=== PATIENT | male | born 1955 | race Caucasian/White ===

== ENCOUNTER → 2023-04-10 | Day surgery (SDC) | payer OTHER, MEDICARE ==
[2023-04-09 10:42] LABS: Absolute Lymphocytes (CBC) 1.5 K/uL (0.7-4.9); Hematocrit 55.7 % (39.6-49.0); Lymphocytes % 18.6 % (15.3-44.8); MCV 89.1 fL (80-100); MPV 8.4 fL (7.6-11.3); Platelets 210 thou/uL (152-406); RBC Red Blood Cell Count 6.26 M/uL (4.33-5.43)
--- NOTE | 2023-04-09 11:40 | RAD REPORT ---
EXAM DESCRIPTION: RAD - Chest Pa And Lat (2 Views) - 04/09/2023 10:32 am CLINICAL HISTORY: PREOP. Hypertension COMPARISON: Chest Pa And Lat (2 Views) dated 11/29/2015; CHEST PA AND LAT 2 VIEW dated 05/04/2013 TECHNIQUE: PA and lateral views of the chest were obtained. FINDINGS: The lungs are clear. Heart size is normal and central vasculature is within normal limits. No pleural effusion or pneumothorax seen. No acute bony finding noted. IMPRESSION: No acute cardiopulmonary process.
[~2023-04-10] MED LIST: CEFAZOLIN SODIUM 2 GM/VIAL ONE; EPHEDRINE SULF 50 MG/ML VIAL ONE; FENTANYL CITR 100 MCG/2 ML ONE; GLYCOPYRROLATE 0.2 MG/ML SYR ONE; HYDROCODONE/APAP 7.5/325 MG TAB PO PRN; HYDROMORPHONE HCL 1 MG/ML INJ ONE; LIDOCAINE 2% MPF 5 ML VIAL ONE; NEOSTIGMINE 1 MG/ML -10 ML VIAL ONE; ONDANSETRON 4 MG/2 ML VIAL ONE; ROCURONIUM 50 MG/5 ML VIAL IV ONE; dexAMETHasone 4 MG/ML VIAL ONE; propofoL 200 MG/20 ML VIAL IV ONE
[2023-04-10] MEDS: NA CHLORIDE 0.9% 1,000 ML ONE ×2 (07:00→07:30)
--- NOTE | 2023-04-10 09:00 | P.OP ---
Date of Service: 04/10/23 Preop diagnosis: Bilateral inguinal hernia Postop diagnosis: Same Procedure performed: Repair of bilateral inguinal hernia Surgeon: Rafael Goldsmith MD Flattening Press Operator: JOSE Rojas Estimated blood loss: Minimal Specimen: Cord lipoma x 2 Findings: As above Anesthesia: General Complications: None Drains: None Fluids and blood products: Nonapplicable Disposition: Recovery room Operative note: Patient brought to the OR placed in supine position. General anesthesia begun. Patient prepped and draped in the usual sterile fashion. Marcaine 0.5% infiltrated in a field block fashion in the left groin first and then in the right groin. A 4 cm oblique incision made between the left pubic tubercle and the anterior iliac superior spine. Subcu tissue divided and bleeding controlled cautery. Bebeto's fascia identified and divided. Aponeurosis the external abdominal oblique identified and mobilized inferiorly to expose the shelving edge. Ilioinguinal nerve identified and retracted out of the field of dissection. External ring opened through and cord mobilized at the pubic tubercle and skeletonized. Large cord lipoma identified. This was dissected free from the cord structures and high ligation with 2-0 Prolene suture and freehand tie was done. Lipoma was excised sent to pathology as specimen. Marlex mesh plug medium in size placed in the internal ring and secured with VersaTack stapler. Onlay mesh placed on the inguinal floor secured medially to the pubic tubercle, superior to the conjoined tendon, inferiorly to the shelving edge and laterally to each other. Cord structures and ilioinguinal nerve placed back in anatomic location. 2 point used to close the aponeurosis. 3-0 chromic used to close Bebeto's fascia. Staple used to close skin. Exact same operation occurred on the right side with same findings. The repair was exactly the same. Sterile dressing applied and patient awakened. Patient taken to recovery room in good general condition. CC Dr. Castaneda's office:
[2023-04-10 09:52] VITALS: O2SAT 97
[2023-04-10 11:06] VITALS: BP 147/86; TEMP 96.7
== END | disposition home or self-care (01) ==
LOC: OR 06:22
PROVIDERS: ATTEND Surgery
PROC: 0YUA0JZ Supplement Bilateral Inguinal Region with Synthetic Substitute, Open Approach (ICD-10-PCS; principal; 2023-04-10 07:30)
DX: K40.20 Bilateral inguinal hernia, without obstruction or gangrene, not specified as recurrent (principal)
CPT/HCPCS: 85025; 36415; 82947 ×2; 88302; 71046; 49505; J2704; J1100; J2710; J2001; J3010; J1170; J2405; J7030

== ENCOUNTER 2024-07-01 13:11 | Emergency (ER) | payer OTHER, MEDICARE ==
--- OUTSIDE RECORDS SUMMARY | 2024-07-01 13:15 | XMS REPORT | Continuity of Care Document ---
Author Name Unknown Address [address] [facility] [address] [place] [address] [facility] [place] Address [address] [facility] [address] [place] [address] Care Team Providers Care Forensics Analyst Name Role Phone Andriy Castaneda Primary Care Physician [phone] Andriy Castaneda Attending Clinician Unavailable Richard Leyva MD Attending Clinician [phone] Minnie Montilla MD Attending Clinician [phone] MINNIE MONTILLA Attending Clinician Unavailable Genaro Ibarra Attending Clinician [phone] GENARO MONROE Attending Clinician Unavailable Divine Art MA Attending Clinician UnavailHENNA Heaton Attending Clinician Unavailable Henna Irvin PA-C Attending Clinician [phone] Unknown, Attending Attending Clinician Unavailab FABRIZIO Mauro Attending Clinician Unavailable Fabrizio Campa Attending Clinician [phone] Unknown, Attending Attending Clinician Unavailab CARMEN Koroma Attending Clinician Unavailable Carmen Taylor MD Attending Clinician [phone] ANNA_Shaji_Mina_ Attending Clinician Unavaila Estefany Herman Attending Clinician [phone] Nurse, Ad[facility] Pob Immunization Attending Clinician Unavailable Mir Parker DO Attending Clinician [phone] Provider, [facility] Attending Clinician Un available Grayson Black MD Attending Clinician GRAYSNO BLACK Attending Clinician Unavail able Doctor Unassigned, [place] Attending Clinician U navailable ANNA_Shaji_Mina_ Admitting Clinician Shilo lincoln Payers Payer Name Policy Type Policy Number Effective Date Expirati on Date Source MEDICARE PART A AND B Medicare [id number] 2023 00:00:00 [place] [employer] [id number] 2021 00:00:00 BC[facility] [id number] 2019 00:00:00 Problems Condition Name Condition Details Condition Category Status Onset Date Resolution Date Last Treatment Date Treating Clinician Comments Source Osteoarthr itis of right knee joint Osteoarthr itis of Right Knee Joint Problem Active 2023-04 00:00: 00 [facility] Primary hypertensi on Primary hypertensi on Disease Active 11-13 00:00: 00 [facility] Rotator cuff tear Rotator cuff tear Disease Active 11-13 00:00: 00 [facility] Mixed hyperlipid emia Mixed hyperlipid emia Disease Active 11-13 00:00: 00 [facility] Current chronic use of systemic steroids Current chronic use of systemic steroids Disease Active 11-13 00:00: 00 [facility] PMR (polymyalg ia rheumatica ) (CMS/HCC) PMR (polymyalg ia rheumatica ) (CMS/HCC) Disease Active 11-13 00:00: 00 [facility] Pain of left knee joint Pain of Left Knee Joint Problem Active - 00:00: 00 [facility] Osteoarthr itis of left knee joint Osteoarthr itis of Left Knee Joint Problem Active 6-06 00:00: 00 [facility] Pain in pelvis Pain in Pelvis Problem Active 5-10 00:00: 00 [facility] 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 itis Problem Active -17 00:00: 00 [facility] No known active problems No known active problems Disease [facility] Allergies, Adverse Reactions, Alerts Allergy Name Allergy Type Status Severity Reaction(s) Onset Date Inactive Date Treating Clinician Comments Source NO KNOWN ALLERGIE S Drug Class Active [facility] NO KNOWN ALLERGIE S SYSTEMIC Active [facility] NO KNOWN ALLERGIE S SYSTEMIC Active MHEOUT NO KNOWN ALLERGIE S SYSTEMIC Active MHEOUT Social History Social Habit Start Date Stop Date Quantity Comments Source Gender identity 2023-07-07 14:36:38 Identifies as male gender (finding) [facility] Exposure to SARS-CoV-2 (event) Not sure [facility] Sexual orientation [facility] Alcoholic beverage intake 2024-05-12 00:00:00 2024-05-12 00:00:00 Lifetime non-drinker (finding) [facility] History of Social function 2024-05-12 00:00:00 2024-05-12 00:00:00 [facility] Tobacco use and exposure 2020-11-06 00:00:00 2020-11-06 00:00:00 Smokeless tobacco non-user [facility] Sex assigned at 1955 00:00:00 1955 00:00:00 [facility] Smoking Status Start Date Stop Date Source Unknown if ever smoked [facility] Never smoked tobacco [facility] Medications Ordered Medication Name Filled Medication Name Start Date Stop Date Current Medication? Ordering Clinician Indication Dosage Frequency Signature (SIG) Comments Components Source bimatoprost (Lumigan) 0.01 % ophthalmic solution bimatoprost (Lumigan) 0.01 % ophthalmic solution 05-12 11:41: 26 Yes 1[drp] Administer 1 drop into both eyes at bedtime. [facility] azelastine (Astelin) 0.1 % nasal spray azelastine (Astelin) 0.1 % nasal spray 2023-04 00:00: 00 Yes 2{spray } Q.5D Administer 2 sprays into each nostril in the morning and 2 sprays in the evening. [facility] famotidine (Pepcid) 10 MG tablet famotidine (Pepcid) 10 MG tablet 2023-04 11:36: 37 Yes 20mg Take 20 mg by mouth. [facility] predniSONE (Deltasone) 1 MG tablet predniSONE (Deltasone) 1 MG tablet 2023-04 00:00: 00 Yes [id number] 4mg QD Take 4 tablets by mouth 1 time each day. [facility] omeprazole (PriLOSEC) [address] capsule omeprazole (PriLOSEC) [address] capsule 11-13 13:23: 40 Yes 20mg Take 20 mg by mouth 1 time each day at the same time. [facility] montelukast (Singulair) 10 MG tablet montelukast (Singulair) 10 MG tablet 11-13 13:23: 39 Yes 1{tbl} Take 1 tablet by mouth 1 time each day at the same time. [facility] Multiple Vitamins-Mi nerals (Multivitam in) liquid Multiple Vitamins-Mi nerals (Multivitam in) liquid 11-13 13:23: 39 Yes Orally [facility] Multiple Vitamins-Mi nerals (Multivitam in) liquid Multiple Vitamins-Mi nerals (Multivitam in) liquid 11-13 13:23: 39 Yes Orally [facility] metFORMIN (Glucophage ) 1000 MG tablet metFORMIN (Glucophage ) 1000 MG tablet 11-13 13:23: 38 Yes 1{tbl} 1 tablet 1 time each day at the same time. [facility] empaglifloz in (Jardiance) 25 MG empaglifloz in (Jardiance) 25 MG 11-13 13:23: 36 Yes Take by mouth. [facility] diphenhydrA MINE (Benadryl Allergy) 25 MG capsule diphenhydrA MINE (Benadryl Allergy) 25 MG capsule 11-13 13:23: 35 03-17 00:00 :00 No 1{capsu le} Q8H 1 capsule in the morning and 1 capsule at noon and 1 capsule before bedtime. [facility] atorvastati n (Lipitor) 20 MG tablet atorvastati n (Lipitor) 20 MG tablet 11-13 13:23: 34 Yes 1{tbl} Take 1 tablet by mouth 1 time each day at the same time. [facility] acetaminoph en (Tylenol) 325 MG tablet acetaminoph en (Tylenol) 325 MG tablet 11-13 13:23: 33 Yes Orally [facility] predniSONE (Deltasone) 5 MG tablet predniSONE (Deltasone) 5 MG tablet 11-13 00:00: 00 Yes [id number] 5mg Q24H Take 1 tablet by mouth daily as needed (pain). [facility] predniSONE (Deltasone) 2.5 MG tablet predniSONE (Deltasone) 2.5 MG tablet 11-13 00:00: 00 Yes [id number] 2.5mg Q24H Take 1 tablet by mouth daily as needed (pain). [facility] Restasis 0.05 % ophthalmic emulsion Restasis 0.05 % ophthalmic emulsion 11-07 00:00: 00 Yes 1[drp] Q12H Administer 1 drop into both eyes in the morning and 1 drop in the evening. [facility] dexamethaso ne (DECADRON PHOSPHATE) injection 8 mg 01-04 20:15: 00 01-04 19:18 :00 No [id number] 8mg [facility] azithromyci n (ZITHROMAX Z-XANDER) 250 mg tablet 01-04 00:00: 00 01-10 04:59 :00 No [id number] 250mg Take 1 tablet by mouth in the morning for 5 days. [facility] metoprolol succinate XL (Toprol-XL) 100 MG 24 hr tablet metoprolol succinate XL (Toprol-XL) 100 MG 24 hr tablet 01-02 00:00: 00 Yes 100mg 100 mg in the morning and 100 mg in the evening. [facility] benzonatate 100 mg capsule 10-05 00:00: 00 Yes [id number] 200mg Take 2 capsules by mouth every 8 (eight) hours as needed for Cough. [facility] azelastine 137 mcg (0.1 %) nasal spray 10-05 00:00: 00 Yes [id number] 1{spray } Use 1 [place] in each nostril in the morning and 1 [place] in the evening. Use in each nostril as directed [facility] promethazin e-dextromet horphan 6.25-15 mg/5 mL syrup 10-05 00:00: 00 Yes [id number] 5mL Take 5 mL by mouth 4 (four) times daily as needed for Cough. [facility] fluticasone (Flonase) 50 MCG/ACT nasal spray fluticasone (Flonase) 50 MCG/ACT nasal spray 10-05 00:00: 00 03-17 00:00 :00 No 1{spray } Administer 1 spray into affected nostril(s) . [facility] amoxicillin -clavulanat e (AUGMENTIN) 875-125 mg per tablet 10-05 00:00: 00 10-13 04:59 :00 No [id number] 1{tbl} Take 1 tablet by mouth in the morning and 1 tablet in the evening. Do all this for 7 days. [facility] benzonatate (Tessalon) 100 MG capsule benzonatate (Tessalon) 100 MG capsule 11-06 00:00: 00 Yes 200mg Take 200 mg by mouth. [facility] meclizine 12.5 mg tablet 11-06 00:00: 00 01-02 00:00 :00 No [id number] 12.5mg Take 1 tablet by mouth 3 (three) times daily as needed for Dizziness. [facility] benzonatate (TESSALON PERLES) 100 mg capsule 11-06 00:00: 00 10-05 00:00 :00 No [id number] 100mg Take 1 capsule by mouth 3 (three) times daily as needed for Cough. [facility] amoxicillin 500 mg capsule 10-25 00:00: 00 10-05 00:00 :00 No TAKE 1 CAPSULE BY MOUTH EVERY 12 HOURS FOR 10 DAYS. [facility] predniSONE 10 mg tablet 10-11 00:00: 00 Yes TAKE 2 TABLETS BY MOUTH EVERY DAY FOR 5 DAYS THEN TAKE 1 TABLET BY MOUTH EVERY DAY FOR 5 DAYS [facility] montelukast 10 mg tablet 10-07 00:00: 00 Yes 10mg Take 1 tablet by mouth in the morning. [facility] omeprazole 40 mg capsule 10-07 00:00: 00 Yes 40mg Take 1 capsule by mouth in the morning. [facility] Testosteron e 50 mg/5 gram (1 %) gel 09-23 00:00: 00 Yes APPLY EXTERNALLY TO SPECIFIC AREA OF SKIN EVERY DAY [facility] tadalafiL 20 mg tablet 09-13 00:00: 00 01-02 00:00 :00 No TAKE 1 TABLET BY MOUTH EVERY DAY NEEDED [facility] clotrimazol e-betametha sone cream 09-10 00:00: 00 Yes APPLY EXTERNALLY TO THE AFFECTED AREA TWICE DAILY DIRECTED [facility] atorvastati n 20 mg tablet 09-08 00:00: 00 Yes 20mg Take 1 tablet by mouth in the morning. [facility] metFORMIN 1,000 mg tablet 09-08 00:00: 00 Yes 1000mg Take 1 tablet by mouth in the morning. [facility] metoprolol succinate XL 50 mg 24 hr tablet 09-08 00:00: 00 Yes 50mg Take 1 tablet by mouth in the morning. [facility] fluconazole (Diflucan) 150 MG tablet fluconazole (Diflucan) 150 MG tablet 09-08 00:00: 00 03-17 00:00 :00 No 150mg QD Take 150 mg by mouth 1 time each day. [facility] predniSONE (Deltasone) 5 MG tablet predniSONE (Deltasone) 5 MG tablet 2019-04 00:00: 00 11-13 00:00 :00 No 1-2 tablets Orally Once a day as needed for flares for 30 days [facility] metformin ER 500 mg tablet,exte nded release 24 hr TAKE 1 TABLET BY MOUTH TWICE DAILY metformin ER 500 mg tablet,exte nded release 24 hr TAKE 1 TABLET BY MOUTH TWICE DAILY No metformin ER 500 mg tablet,ext ended release 24 hr TAKE 1 TABLET BY MOUTH TWICE DAILY [facility] testosteron e 1 % (25 mg/2.5 gram) transdermal gel packet testosteron e 1 % (25 mg/2.5 gram) transdermal gel packet No testostero ne 1 % (25 mg/2.5 gram) transderma l gel packet [facility] benzonatate 200 mg capsule TAKE 1 CAPSULE BY MOUTH THREE TIMES DAILY NEEDED benzonatate 200 mg capsule TAKE 1 CAPSULE BY MOUTH THREE TIMES DAILY NEEDED No benzonatat e 200 mg capsule TAKE 1 CAPSULE BY MOUTH THREE TIMES DAILY NEEDED [facility] docusate sodium 100 mg capsule TAKE 1 CAPSULE BY MOUTH TWICE DAILY docusate sodium 100 mg capsule TAKE 1 CAPSULE BY MOUTH TWICE DAILY No docusate sodium 100 mg capsule TAKE 1 CAPSULE BY MOUTH TWICE DAILY [facility] famotidine 20 mg tablet TAKE 1 TABLET BY MOUTH AT BEDTIME famotidine 20 mg tablet TAKE 1 TABLET BY MOUTH AT BEDTIME No famotidine 20 mg tablet TAKE 1 TABLET BY MOUTH AT BEDTIME [facility] fluconazole 200 mg tablet TAKE 1 TABLET BY MOUTH DAILY fluconazole 200 mg tablet TAKE 1 TABLET BY MOUTH DAILY No fluconazol e 200 mg tablet TAKE 1 TABLET BY MOUTH DAILY [facility] hydrocodone 7.5 mg-acetamin ophen 325 mg tablet TAKE 1 TABLET BY MOUTH EVERY 4-6 HOURS NEEDED hydrocodone 7.5 mg-acetamin ophen 325 mg tablet TAKE 1 TABLET BY MOUTH EVERY 4-6 HOURS NEEDED No hydrocodon e 7.5 mg-acetami nophen 325 mg tablet TAKE 1 TABLET BY MOUTH EVERY 4-6 HOURS NEEDED [facility] Jardiance 25 mg tablet TAKE 1 TABLET BY MOUTH EVERY DAY Jardiance 25 mg tablet TAKE 1 TABLET BY MOUTH EVERY DAY No Jardiance 25 mg tablet TAKE 1 TABLET BY MOUTH EVERY DAY [facility] losartan 25 mg tablet TAKE 1 TABLET BY MOUTH DAILY losartan 25 mg tablet TAKE 1 TABLET BY MOUTH DAILY No losartan 25 mg tablet TAKE 1 TABLET BY MOUTH DAILY [facility] meclizine 25 mg tablet TAKE 1 TABLET BY MOUTH EVERY 6 HOURS NEEDED FOR DIZZINESS meclizine 25 mg tablet TAKE 1 TABLET BY MOUTH EVERY 6 HOURS NEEDED FOR DIZZINESS No meclizine 25 mg tablet TAKE 1 TABLET BY MOUTH EVERY 6 HOURS NEEDED FOR DIZZINESS [facility] metformin 500 mg tablet TAKE 2 TABLETS BY MOUTH TWICE DAILY metformin 500 mg tablet TAKE 2 TABLETS BY MOUTH TWICE DAILY No metformin 500 mg tablet TAKE 2 TABLETS BY MOUTH TWICE DAILY [facility] metoclopram deyanira 10 mg tablet TAKE 3 TABLETS BY MOUTH COLONOSCOPY PREP PACKET metoclopram deyanira 10 mg tablet TAKE 3 TABLETS BY MOUTH COLONOSCOPY PREP PACKET No metoclopra mide 10 mg tablet TAKE 3 TABLETS BY MOUTH COLONOSCOP Y PREP PACKET [facility] neomycin 3.5 mg/g-polymy giselle B 10,000 unit/g-dexa meth 0.1 % eye oint APPLY A THIN RIBBON TO LEFT EYE EVERY NIGHT AT BEDTIME neomycin 3.5 mg/g-polymy giselle B 10,000 unit/g-dexa meth 0.1 % eye oint APPLY A THIN RIBBON TO LEFT EYE EVERY NIGHT AT BEDTIME No neomycin 3.5 mg/g-polym yxin B 10,000 unit/g-dex ameth 0.1 % eye oint APPLY A THIN RIBBON TO LEFT EYE EVERY NIGHT AT BEDTIME [facility] omeprazole 20 mg capsule,del ayed release TAKE 1 CAPSULE BY MOUTH IN THE MORNING omeprazole 20 mg capsule,del ayed release TAKE 1 CAPSULE BY MOUTH IN THE MORNING No omeprazole 20 mg capsule,de layed release TAKE 1 CAPSULE BY MOUTH IN THE MORNING [facility] sodium,pota ssium,mag sulfates 17.5 gram-3.13 gram-1.6 gram oral soln MIX AND DRINK DIRECTED YOUR COLONOSCOPY PACKET INSTRUCTION S sodium,pota ssium,mag sulfates 17.5 gram-3.13 gram-1.6 gram oral soln MIX AND DRINK DIRECTED YOUR COLONOSCOPY PACKET INSTRUCTION S No sodium,pot assium,mag sulfates 17.5 gram-3.13 gram-1.6 gram oral soln MIX AND DRINK DIRECTED YOUR COLONOSCOP Y PACKET INSTRUCTIO NS [facility] valacyclovi r 1 gram tablet TAKE 1 TABLET BY MOUTH EVERY 12 HOURS valacyclovi r 1 gram tablet TAKE 1 TABLET BY MOUTH EVERY 12 HOURS No valacyclov ir 1 gram tablet TAKE 1 TABLET BY MOUTH EVERY 12 HOURS [facility] Mobic 15 mg tablet Take 1 tablet every day by oral route with meal(s) for 28 days. Take 2 tabs on first day, then 1 tab daily Mobic 15 mg tablet Take 1 tablet every day by oral route with meal(s) for 28 days. Take 2 tabs on first day, then 1 tab daily No 1 Q1D Mobic 15 mg tablet Take 1 tablet every day by oral route with meal(s) for 28 days. Take 2 tabs on first day, then 1 tab daily [facility] Immunizations Ordered Immunization Name Filled Immunization Name Date Status Comments Source SARS-COV-2 COVID-19 PFIZER VACCINE 2021-01-24 00:00:00 Completed [facility] SARS-COV-2 COVID-19 PFIZER VACCINE 2021-01-24 00:00:00 Completed [facility] SARS-COV-2 COVID-19 PFIZER VACCINE 2021-01-24 00:00:00 Completed [facility] SARS-COV-2 COVID-19 PFIZER VACCINE 2020-06-27 00:00:00 Completed [facility] SARS-COV-2 COVID-19 PFIZER VACCINE 2020-06-27 00:00:00 Completed [facility] SARS-COV-2 COVID-19 PFIZER VACCINE 2020-06-27 00:00:00 Completed [facility] SARS-COV-2 COVID-19 PFIZER VACCINE 2020-06-27 00:00:00 Completed [facility] SARS-COV-2 COVID-19 PFIZER VACCINE 2020-06-27 00:00:00 Completed [facility] SARS-COV-2 COVID-19 PFIZER VACCINE 2020-06-06 00:00:00 Completed [facility] SARS-COV-2 COVID-19 PFIZER VACCINE 2020-06-06 00:00:00 Completed [facility] SARS-COV-2 COVID-19 PFIZER VACCINE 2020-06-06 00:00:00 Completed [facility] SARS-COV-2 COVID-19 PFIZER VACCINE 2020-06-06 00:00:00 Completed [facility] SARS-COV-2 COVID-19 PFIZER VACCINE 2020-06-06 00:00:00 Completed [facility] SARS-COV-2 COVID-19 PFIZER VACCINE Unknown Completed [facility] SARS-COV-2 COVID-19 PFIZER VACCINE Unknown Completed [facility] SARS-COV-2 COVID-19 PFIZER VACCINE Unknown Completed [facility] Vital Signs Vital Name Observation Time Observation Value Comments S jerome Systolic blood pressure 2024-05-12 11:33:00 147 mm[Hg] [facility] Epic Diastolic blood pressure 2024-05-12 11:33:00 90 mm[Hg] [facility] Epic Heart rate 2024-05-12 11:33:00 70 /min [facility] [place] [facility] Body height 2024-05-12 11:33:00 160 cm L[facility]aro [facility] [place] [facility] Body weight 2024-05-12 11:33:00 92.534 kg [facility]aro [facility] BMI 2024-05-12 11:33:00 36.14 kg/m2 [facility] Systolic blood pressure 2024-05-12 11:33:00 147 mm[Hg] [facility] Diastolic blood pressure 2024-05-12 11:33:00 90 mm[Hg] [facility] Epic Heart rate 2024-05-12 11:33:00 70 /min [facility] Body height 2024-05-12 11:33:00 160 cm [facility] Body weight 2024-05-12 11:33:00 92.534 kg [facility] [place] [facility] BMI 2024-05-12 11:33:00 36.14 kg/m2 [facility] [place] [facility] Systolic blood pressure 2024-03-17 11:29:00 133 mm[Hg] [facility] Epic Diastolic blood pressure 2024-03-17 11:29:00 76 mm[Hg] [facility] Epic Heart rate 2024-03-17 11:29:00 64 /min [facility] Body height 2024-03-17 11:29:00 160 cm [facility] Body weight 2024-03-17 11:29:00 91.173 kg [facility] BMI 2024-03-17 11:29:00 35.61 kg/m2 [facility] Systolic blood pressure 2024-03-17 11:29:00 133 mm[Hg] [facility] Epic Diastolic blood pressure 2024-03-17 11:29:00 76 mm[Hg] [facility] Epic Heart rate 2024-03-17 11:29:00 64 /min [facility] [place] [facility] Body height 2024-03-17 11:29:00 160 cm [facility] Body weight 2024-03-17 11:29:00 91.173 kg [facility]rao [facility] BMI 2024-03-17 11:29:00 35.61 kg/m2 [facility] BMI (Body Mass Index) 2024-03-11 00:00:00 36.9 kg/m2 [facility] Body Weight 2024-03-11 00:00:00 215 [lb_av] [facility] Height 2024-03-11 00:00:00 64 [in_i] [facility] Systolic blood pressure 2024-01-03 15:43:00 157 mm[Hg] [facility] Diastolic blood pressure 2024-01-03 15:43:00 90 mm[Hg] [facility] Heart rate 2024-01-03 15:42:00 65 /min [facility] 2024-01-03 15:42:00 36.72 Sophia [facility] Respiratory rate 2024-01-03 15:42:00 18 /min [facility] Body height 2024-01-03 15:42:00 162.6 cm [facility] Body weight 2024-01-03 15:42:00 88.451 kg [facility] BMI 2024-01-03 15:42:00 33.47 kg/m2 [facility] Oxygen saturation in Arterial blood by Pulse oximetry 2024-01-03 15:42:00 98 /min [facility] Systolic blood pressure 2023-11-14 13:17:00 145 mm[Hg] [facility] Diastolic blood pressure 2023-11-14 13:17:00 89 mm[Hg] [facility] Epic Heart rate 2023-11-14 13:17:00 72 /min [facility] Body weight 2023-11-14 13:17:00 89.359 kg [facility]aro [facility] Systolic blood pressure 2023-11-14 13:17:00 145 mm[Hg] [facility] Diastolic blood pressure 2023-11-14 13:17:00 89 mm[Hg] [facility] Epic Heart rate 2023-11-14 13:17:00 72 /min [facility] [place] [facility] Body weight 2023-11-14 13:17:00 89.359 kg Lazaro gisselll [facility] Systolic blood pressure 2023-01-04 19:19:00 182 mm[Hg] [facility] Diastolic blood pressure 2023-01-04 19:19:00 105 mm[Hg] [facility] Heart rate 2023-01-04 18:43:00 96 /min [facility] Body temperature 2023-01-04 18:43:00 36.83 Sophia [facility] Respiratory rate 2023-01-04 18:43:00 16 /min [facility] Body height 2023-01-04 18:43:00 162.6 cm [facility] Body weight 2023-01-04 18:43:00 93.186 kg [facility] BMI 2023-01-04 18:43:00 35.26 kg/m2 [facility] Oxygen saturation in Arterial blood by Pulse oximetry 2023-01-04 18:43:00 97 /min [facility] Systolic blood pressure 2022-10-05 18:04:00 150 mm[Hg] [facility] Diastolic blood pressure 2022-10-05 18:04:00 91 mm[Hg] [facility] Heart rate 2022-10-05 18:03:00 63 /min [facility] Body temperature 2022-10-05 18:03:00 36.67 Sophia [facility] Respiratory rate 2022-10-05 18:03:00 16 /min [facility] Body height 2022-10-05 18:03:00 162.6 cm [facility] Body weight 2022-10-05 18:03:00 92.08 kg [facility] BMI 2022-10-05 18:03:00 34.84 kg/m2 [facility] Oxygen saturation in Arterial blood by Pulse oximetry 2022-10-05 18:03:00 97 /min [facility] Systolic blood pressure 2020-11-06 21:16:00 161 mm[Hg] [facility] Diastolic blood pressure 2020-11-06 21:16:00 95 mm[Hg] [facility] Heart rate 2020-11-06 21:11:00 64 /min [facility] Body temperature 2020-11-06 21:11:00 36.78 Sophia [facility] Respiratory rate 2020-11-06 21:11:00 16 /min [facility] Body height 2020-11-06 21:11:00 162.6 cm [facility] Body weight 2020-11-06 21:11:00 88.451 kg [facility] BMI 2020-11-06 21:11:00 33.47 kg/m2 [facility] Oxygen saturation in Arterial blood by Pulse oximetry 2020-11-06 21:11:00 97 /min [facility] Procedures Procedure Date / Time Performed Performing Clinician Source [facility] SARS-COV-2 ANTIGEN (BINAX NOW) 2024-01-03 16:13:00 Henna Irvin [facility] [place] POCT GLUCOSE (AUTOMATED) 2024-01-03 15:56:00 Unknown, Attending [facility] [place] DEXA bone density 2023-11-14 00:00:00 [facility] [place] Epic POCT SARS-COV-2 ANTIGEN (BINAX NOW) 2023-01-04 18:59:00 Fabrizio Green [facility] [place] XR, knee, 1 or 2 view 2021-09-18 00:00:00 [facility] RADEX PELVIS 1/2 VIEWS 2021-08-22 00:00:00 [facility] SARS-COV-2 COVID-19 VACCINE,0.3ML,IM (PFIZER) 2021-01-24 21:18:51 Doctor Unassigned, [place] [facility] [place] Back Surgery [facility] Orthoped [facility] Sports Medicine Arthroscopy of Knee Suzie O rthopedic Sports Medicine Encounters Start Date/Time End Date/Time Encounter Type Admission Type Attending Clinicians Care Facility Care Department Encounter ID Source 2021-11-15 11:40:[address] [facility] [id number] [facility] 2021-11-14 13:26:[address] [facility] [id number] [facility] 2024-05-27 00:00:00 2024-05-27 13:18:44 Telephone Gordon [facility] [id number] 350.1.13.10 4.2.7.2.686 [id number] [facility] 2024-05-12 11:40:00 2024-05-12 12:34:38 Office Visit Minnie Montilla Rheumatol y [facility] 1.2.840.114 350.1.13.70 8.2.7.2.686 [id number] Tristin Sewell [facility] 2024-05-12 11:21:28 2024-05-12 12:34:38 Outpatient Elective MINNIE MONTILLA EOUT EOUT [id number] [facility] 2024-03-17 11:20:00 2024-03-17 12:27:08 [facility] 1.2.840.114 350.1.13.70 8.2.7.2.686 [id number] Tristin Sewell [facility] 2024-03-17 11:12:18 2024-03-17 12:27:08 Outpatient Elective GENARO MONROE MHEOUT MHEOUT [id number] [facility] 2024-03-11 00:00:00 2024-03-11 00:00:00 Mina Girard MD: [id number] [facility], [place] [address] , Ph. [facility] [place] [facility] [place] - FOG_Ofc [facility] [id number] [facility] Medicin e 2024-01-07 00:00:00 2024-01-07 14:50:28 Telephone Divine Art Natalie Rheumatol [facility] 1..840.114 350.1.13.70 8.2.7.2.686 [id number] Adalphillip Sewell [facility] 2024-01-03 10:40:00 2024-01-03 11:15:43 Outpatient R HENNA IRVIN [facility] [id number] [facility] 2024-01-03 10:40:00 2024-01-03 11:15:43 Urgent Care Henna Irvin Unknown, [facility] 1..840.114 350.1.13.10 4.2.7.2.686 [id number] [facility] 2023-11-14 13:11:43 2023-11-14 13:56:52 Outpatient Elective MINNIE MONTILLA EOUT [id number] [facility]HEOUT 2023-11-14 13:00:00 2023-11-14 13:56:52 Office Visit Minnie Montilla Rheumatol [facility] 1..840.114 350.1.13.70 8.2.7.2.686 [id number] Tristin valladares Donato [facility] 2023-01-04 13:20:00 2023-01-04 14:12:35 Outpatient R FABRIZIO GREEN [facility] [id number] [facility] 2023-01-04 13:20:00 2023-01-04 14:12:35 Urgent Care Fabrizio Green Unknown, Attending [facility] 1.2.840.114 350.1.13.10 4.2.7.2.686 [id number] [facility] 2023-01-04 00:00:00 2023-01-04 00:00:00 Telephone [facility]rizio Green [facility] 1.2.840.114 350.1.13.10 4.2.7.2.686 [id number] [facility] 2022-10-05 13:00:00 2022-10-05 13:25:20 Outpatient R CARMEN TAYLOR [facility] [id number] [facility] 2022-10-05 13:00:00 2022-10-05 13:25:20 Urgent Care Carmen Taylor, Attending [facility] BU[facility] 1.2.840.114 350.1.13.10 4.2.7.2.686 [id number] [facility] 2021-09-18 01:26:00 2021-09-18 01:26:00 Outpatient FOG_Jeromee_Guanako [place] AO [place] [id number] [facility] 2021-09-18 01:26:00 2021-09-18 01:26:00 Outpatient FOG_Shaji_Guanako Gil[place] AO AO [id number] [facility] 2021-09-18 00:00:00 2021-09-18 00:00:00 EMMETT Vance: [id number] [place] [address] , Ph. [phone] [facility] [place] [facility] [place] [facility] [place] [id number] [facility] 2021-09-18 00:00:00 2021-09-18 00:00:00 Outpatient Estefany Schumacher [facility] [id number] 2021-08-22 08:26:00 2021-08-22 08:26:00 Outpatient FOG_Shaji_Guanako allen_ [facility] [id number] [facility] 2021-08-22 00:00:00 2021-08-22 00:00:00 Mina Girard MD: [id number] [facility], [place] [address] , Ph. [phone] [place] [facility] [place] [facility] [place] [id number] [facility] 2021-01-24 16:30:00 2021-01-24 16:30:00 Outpatient [facility] [id number] [facility] 2021-01-24 16:18:22 2021-01-24 16:19:01 Imm/Inj Visit Nurse, Zuly Benedict Immunizatio Mir Garcia [facility] Building 1.2.840.114 350.1.13.10 4.2.7.2.686 [id number] [facility] 2020-11-06 16:07:48 2020-11-06 16:34:22 Urgent Care Provider, [facility] Gr[facility] Black [facility] Office Building One 1..840.114 350.1.13.10 4.2.7.2.686 [id number] [facility] 2020-11-06 16:20:00 2020-11-06 16:20:00 Outpatient GRAYSON OLIVARES [facility] [id number] [facility] 2020-11-06 00:00:00 2020-11-06 00:00:00 Letter (Out) Doctor Unassigned, [place] [facility] 1.2.840.114 350.1.13.10 4.2.7.2.686 [id number] [facility] Results Test Description Test Time Test Comments Results Result Co mments Source [facility] GLUCOSE (AUTOMATED)2024-01-03 15:58:15* Test Item Value Reference Range Interpretation Comme nts POCT GLU (test code = 1943241426) 115 mg/dL 70-110 H Lab Interpretation (test cod e = 27041-7) Abnormal [facility] SARS-COV-2 ANTIGEN (BINAX NOW)2023-01-04 18:59:00* Test Item Value Reference Range Interpretation Comme nts POCT SARS-COV-2 ANTIGEN (test code = 91074-6) Not Detected Not Detected On board controls acceptable with C Line (test code = 3574) Yes COLT (test code = COLT) accurate developme nt and interpretation of all internal controls [facility] [place] Notes Date/Time Note Provider Source 2024-05-27 13:17:55 Medical clearance for dental work placed in providers box. L ENGINEER Nicol Gustafson RN [facility]2025-02-04 06:30:05* [facility]77-91-36 06:30:05* Minnie Montilla MD - 05/12/2024 11:40 AM HOTEL ENGINEER Images from the original note were not included. [facility] Established Patient Evaluation Subjective Patient ID: Dee Jose is a 69 y.o. male who presents for Follow-up. PMR: patient has been on Pred 2.5mg for 2-3 weeks and doing well. Started 5mg 03/2024. No activity intolerance. No vision change, headaches, jaw pain. OA of knees: Pt follows with ortho, pt gets periodic steroid injections with benefit. Pain relief typically lasts for months. Last injection 03/2024 did not help. patient not ready for TKA as has been recom. Pt tries to stay active with exercise. Pt denies any other changes in his health. No trauma or injury in the last year. Pt denies hospitalizations or infections. . Current Outpatient Medications Medication Instructions acetaminophen (Tylenol) 325 MG tablet Orally atorvastatin (Lipitor) 20 MG tablet 1 tablet, Every 24 hours azelastine (Astelin) 0.1 % nasal spray 2 sprays, 2 times daily benzonatate (TESSALON) 200 mg bimatoprost (Lumigan) 0.01 % ophthalmic solution 1 drop, Nightly clotrimazole-betamethasone (Lotrisone) cream APPLY EXTERNALLY TO THE AFFECTED AREA TWICE DAILY DIRECTED empagliflozin (Jardiance) 25 MG Take by mouth. famotidine (PEPCID) 20 mg losartan (Cozaar) 25 MG tablet Take by mouth. metFORMIN (Glucophage) 1000 MG tablet 1 tablet, Every 24 hours metoprolol succinate XL (TOPROL-XL) 100 mg, 2 times daily (11/28) montelukast (Singulair) 10 MG tablet 1 tablet, Every 24 hours Multiple Vitamins-Minerals (Multivitamin) liquid Orally omeprazole (PRILOSEC) 20 mg, Every 24 hours predniSONE (DELTASONE) 5 mg, Oral, Daily PRN predniSONE (DELTASONE) 2.5 mg, Oral, Daily PRN predniSONE (DELTASONE) 4 mg, Oral, Daily Restasis 0.05 % ophthalmic emulsion 1 drop, Every 12 hours testosterone (Androgel) 50 MG/5GM (1%) gel Every 24 hours Patient Active Problem List Diagnosis Primary hypertension Bilateral carpal tunnel syndrome Lumbar disc disease Rotator cuff tear PMR (polymyalgia rheumatica) ([facility]) ([facility]) Type 2 diabetes mellitus, without long-term current use of insulin ([facility]) Entrapment of left ulnar nerve History of meniscal tear Primary osteoarthritis of both knees Mixed hyperlipidemia Current chronic use of systemic steroids Polymyalgia rheumatica Hx steroid use since ~2013. Off steroids since ~06/28. Chronic steroid taper use for flares. Review of Systems Constitutional: Negative for fever and unexpected weight change. HENT: Negative for dental problem and mouth sores. Eyes: Negative for pain, redness, itching and visual disturbance. Respiratory: Negative for cough, chest tightness and shortness of breath. Cardiovascular: Negative for chest pain. Gastrointestinal: Negative for abdominal pain and blood in stool. Skin: Negative for color change and rash. Objective Physical Exam: Visit Vitals BP 147/90 Pulse 70 Ht 1.6 m (5' 3") Wt 92.5 kg (204 lb) BMI 36.14 kg/m? Smoking Status Never BSA 2.03 m? Non-articular exam: Normal Gait abnormalities: none Devices: None Deformities: None Diagnostics: 07/31/12 l/s xrays. Minimal anterolisthesis at L4-L5 which is slightly worsened on flexion and reduces on extension. Mild multilevel endplate degenerative changes worst at L4-L5 and L5-S1. C/s xrays. There is reversal of normal lordosis in lower cervical region. There is prominent facet arthropathy on the right at C3-C4 with moderate grade 1 anterolisthesis. There is a difference of approximately 2 mm in the degree of listhesis at C3 relative to C4 between flexion-extension. At least moderate bilateral osseous foraminal stenosis is noted this level as well oblique images. At C4-C5 there is mild grade 1 anterolisthesis which changes approximately 1.5 mm between flexion-extension. Mild left osseous foraminal stenosis is suggested at this level. At C5-C6 there is mild grade 1 anterolisthesis with a difference of approximately 1.5 mm between flexion-extension. At C6-C7 there is prominent spondylosis with large anterolateral osteophytes and uncovertebral hypertrophy. At least moderate bilateral osseous foraminal stenosis is present, and dorsal spondylosis contributes to at least mild osseous canal stenosis. C7-T1 is suboptimally visualized on lateral images. Assessment Diagnoses and all orders for this visit: PMR (polymyalgia rheumatica) ([facility]) ([facility]) skilled nursing current use of systemic steroids Primary hypertension Type 2 diabetes mellitus without complication, without long-term current use of insulin ([facility]) ([facility]) Plan -PMR: Improvement in upper girdle pain with pred use. Pt to continue with slow Pred wean as discussed. To consider DMARD addition if pt not able to wean Prednisone. - ferry terminal supervisor steroid use: DEXA showing osteopenia with low FRAX. Advise increased weight bearing exercise and daily calcium + vitamin D. - hypertension and diabetes: Controlled in office today. Continue to monitor with persistent pred use. Management options were discussed. Answered all questions. Side effects of medications were discussed. Reviewed all labs and diagnostics with patient. Pt to continue to follow up with PCP for routine health evaluations. Follow up: 4 months Minnie Montilla MD L ENGINEER [facility] [id number] 06:30:05Upcoming Encounters Health Maintenance Due Date Last Done Comments CT Colonography 1956 Colonoscopy 1956 Colorectal Cancer Screening 1956 Diabetes: Hemoglobin A1C 1956 FIT-DNA 1956 FIT 1956 FOBT 1956 Lipid Panel 1956 Medicare Annual Wellness (AWV) 1956 Sigmoidoscopy 1956 Annual Physical 1959 Pneumococcal Vaccine: 65+ Ye ars (1 of 2 - PCV) 1962 Diabetes: Foot Exam 1966 Diabetes: Retinopathy Screening 1966 DTaP/Tdap/Td Vaccines (1 - Tdap) 1975 Diabetes: Urine Protein Screening 1975 Zoster Vaccines (1 of 2) 2006 Influenza Vaccine (#1) 2023 01/06/2014 Respiratory Syncytial Virus (RSV) or >=60 (1 - 1-dose 75+ series) 2031 HIB Vaccines Aged Out No longer eligi ble based on patient's age to complete this topic HPV Vaccines Aged Out No longer eligi ble based on patient's age to complete this topic Hepatitis A Vaccines Aged Out No long er eligible based on patient's age to complete this topic Hepatitis B Vaccines Aged Out No long er eligible based on patient's age to complete this topic IPV Vaccines Aged Out No longer eligi ble based on patient's age to complete this topic Meningococcal Vaccine Aged Out No lucy ansley eligible based on patient's age to complete this topic Rotavirus Vaccines Aged Out No longer eligible based on patient's age to complete this topic [id number] 06:30:05 Diagnosis PMR (polymyalgia rheumatica) ([facility]) ([facility]) Polymyalgia rheumatica skilled nursing current use of sys temic steroids Primary hypertension Unspecified essential hypertension Type 2 diabetes mellitus wit hout complication, without long-term current use of insulin ([facility]) ([facility]) [facility] [id number] 06:30:04* [facility] HospitalLpdfcxh2891-52-71 06:30:04* Minnie Montilla MD - 05/12/2024 11:40 AM HOTEL ENGINEER Images from the original note were not included. [facility] Established Patient Evaluation Subjective Patient ID: Dee Jose is a 69 y.o. male who presents for Follow-up. PMR: patient has been on Pred 2.5mg for 2-3 weeks and doing well. Started 5mg 03/2024. No activity intolerance. No vision change, headaches, jaw pain. OA of knees: Pt follows with ortho, pt gets periodic steroid injections with benefit. Pain relief typically lasts for months. Last injection 03/2024 did not help. patient not ready for TKA as has been recom. Pt tries to stay active with exercise. Pt denies any other changes in his health. No trauma or injury in the last year. Pt denies hospitalizations or infections. . Current Outpatient Medications Medication Instructions acetaminophen (Tylenol) 325 MG tablet Orally atorvastatin (Lipitor) 20 MG tablet 1 tablet, Every 24 hours azelastine (Astelin) 0.1 % nasal spray 2 sprays, 2 times daily benzonatate (TESSALON) 200 mg bimatoprost (Lumigan) 0.01 % ophthalmic solution 1 drop, Nightly clotrimazole-betamethasone (Lotrisone) cream APPLY EXTERNALLY TO THE AFFECTED AREA TWICE DAILY DIRECTED empagliflozin (Jardiance) 25 MG Take by mouth. famotidine (PEPCID) 20 mg losartan (Cozaar) 25 MG tablet Take by mouth. metFORMIN (Glucophage) 1000 MG tablet 1 tablet, Every 24 hours metoprolol succinate XL (TOPROL-XL) 100 mg, 2 times daily (11/28) montelukast (Singulair) 10 MG tablet 1 tablet, Every 24 hours Multiple Vitamins-Minerals (Multivitamin) liquid Orally omeprazole (PRILOSEC) 20 mg, Every 24 hours predniSONE (DELTASONE) 5 mg, Oral, Daily PRN predniSONE (DELTASONE) 2.5 mg, Oral, Daily PRN predniSONE (DELTASONE) 4 mg, Oral, Daily Restasis 0.05 % ophthalmic emulsion 1 drop, Every 12 hours testosterone (Androgel) 50 MG/5GM (1%) gel Every 24 hours Patient Active Problem List Diagnosis Primary hypertension Bilateral carpal tunnel syndrome Lumbar disc disease Rotator cuff tear PMR (polymyalgia rheumatica) ([facility]) ([facility]) Type 2 diabetes mellitus, without long-term current use of insulin ([facility]) Entrapment of left ulnar nerve History of meniscal tear Primary osteoarthritis of both knees Mixed hyperlipidemia Current chronic use of systemic steroids Polymyalgia rheumatica Hx steroid use since ~2013. Off steroids since ~06/28. Chronic steroid taper use for flares. Review of Systems Constitutional: Negative for fever and unexpected weight change. HENT: Negative for dental problem and mouth sores. Eyes: Negative for pain, redness, itching and visual disturbance. Respiratory: Negative for cough, chest tightness and shortness of breath. Cardiovascular: Negative for chest pain. Gastrointestinal: Negative for abdominal pain and blood in stool. Skin: Negative for color change and rash. Objective Physical Exam: Visit Vitals BP 147/90 Pulse 70 Ht 1.6 m (5' 3") Wt 92.5 kg (204 lb) BMI 36.14 kg/m? Smoking Status Never BSA 2.03 m? Non-articular exam: Normal Gait abnormalities: none Devices: None Deformities: None Diagnostics: 07/31/12 l/s xrays. Minimal anterolisthesis at L4-L5 which is slightly worsened on flexion and reduces on extension. Mild multilevel endplate degenerative changes worst at L4-L5 and L5-S1. C/s xrays. There is reversal of normal lordosis in lower cervical region. There is prominent facet arthropathy on the right at C3-C4 with moderate grade 1 anterolisthesis. There is a difference of approximately 2 mm in the degree of listhesis at C3 relative to C4 between flexion-extension. At least moderate bilateral osseous foraminal stenosis is noted this level as well oblique images. At C4-C5 there is mild grade 1 anterolisthesis which changes approximately 1.5 mm between flexion-extension. Mild left osseous foraminal stenosis is suggested at this level. At C5-C6 there is mild grade 1 anterolisthesis with a difference of approximately 1.5 mm between flexion-extension. At C6-C7 there is prominent spondylosis with large anterolateral osteophytes and uncovertebral hypertrophy. At least moderate bilateral osseous foraminal stenosis is present, and dorsal spondylosis contributes to at least mild osseous canal stenosis. C7-T1 is suboptimally visualized on lateral images. Assessment Diagnoses and all orders for this visit: PMR (polymyalgia rheumatica) ([facility]) ([facility]) skilled nursing current use of systemic steroids Primary hypertension Type 2 diabetes mellitus without complication, without long-term current use of insulin ([facility]) ([facility]) Plan -PMR: Improvement in upper girdle pain with pred use. Pt to continue with slow Pred wean as discussed. To consider DMARD addition if pt not able to wean Prednisone. - skilled nursing steroid use: DEXA showing osteopenia with low FRAX. Advise increased weight bearing exercise and daily calcium + vitamin D. - hypertension and diabetes: Controlled in office today. Continue to monitor with persistent pred use. Management options were discussed. Answered all questions. Side effects of medications were discussed. Reviewed all labs and diagnostics with patient. Pt to continue to follow up with PCP for routine health evaluations. Follow up: 4 months Minnie Montilla MD [place] [id number] 06:30:04Upcoming Encounters Health Maintenance Due Date Last Done Comments CT Colonography 1956 Colonoscopy 1956 Colorectal Cancer Screening 1956 Diabetes: Hemoglobin A1C 1956 FIT-DNA 1956 FIT 1956 FOBT 1956 Lipid Panel 1956 Medicare Annual Wellness (AWV) 1956 Sigmoidoscopy 1956 Annual Physical 1959 Pneumococcal Vaccine: 65+ Ye ars (1 of 2 - PCV) 1962 Diabetes: Foot Exam 1966 Diabetes: Retinopathy Screening 1966 DTaP/Tdap/Td Vaccines (1 - Tdap) 1975 Diabetes: Urine Protein Screening 1975 Zoster Vaccines (1 of 2) 2006 Influenza Vaccine (#1) 2023 01/06/2014 Respiratory Syncytial Virus (RSV) or >=60 (1 - 1-dose 75+ series) 2031 HIB Vaccines Aged Out No longer eligi ble based on patient's age to complete this topic HPV Vaccines Aged Out No longer eligi ble based on patient's age to complete this topic Hepatitis A Vaccines Aged Out No long er eligible based on patient's age to complete this topic Hepatitis B Vaccines Aged Out No long er eligible based on patient's age to complete this topic IPV Vaccines Aged Out No longer eligi ble based on patient's age to complete this topic Meningococcal Vaccine Aged Out No lucy ansley eligible based on patient's age to complete this topic Rotavirus Vaccines Aged Out No longer eligible based on patient's age to complete this topic [facility] [id number] 06:30:04 Diagnosis PMR (polymyalgia rheumatica) ([facility]) ([facility]) 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 Primary hypertension Unspecified essential hypertension Type 2 diabetes mellitus wit hout complication, without long-term current use of insulin ([facility]) ([facility]) [facility] HospitalKixsppv9113-77-03 06:30:04 [facility] [id number] 13:32:08* [facility] HospitalAjzrarj1741-57-01 13:32:08Upcoming Encounters Health Maintenance Due Date Last Done Comments CT Colonography 1956 Colonoscopy 1956 Colorectal Cancer Screening 1956 Diabetes: Hemoglobin A1C 1956 FIT-DNA 1956 FIT 1956 FOBT 1956 Lipid Panel 1956 Medicare Annual Wellness (AWV) 1956 Sigmoidoscopy 1956 Annual Physical 1959 Pneumococcal Vaccine: 65+ Ye ars (1 of 2 - PCV) 1962 Diabetes: Foot Exam 1966 Diabetes: Retinopathy Screening 1966 DTaP/Tdap/Td Vaccines (1 - Tdap) 1975 Diabetes: Urine Protein Screening 1975 Zoster Vaccines (1 of 2) 2006 Influenza Vaccine (#1) 2023 01/06/2014 Respiratory Syncytial Virus (RSV) or >=60 (1 - 1-dose 75+ series) 2031 HIB Vaccines Aged Out No longer eligi ble based on patient's age to complete this topic HPV Vaccines Aged Out No longer eligi ble based on patient's age to complete this topic Hepatitis A Vaccines Aged Out No long er eligible based on patient's age to complete this topic Hepatitis B Vaccines Aged Out No long er eligible based on patient's age to complete this topic IPV Vaccines Aged Out No longer eligi ble based on patient's age to complete this topic Meningococcal Vaccine Aged Out No lucy ansley eligible based on patient's age to complete this topic Rotavirus Vaccines Aged Out No longer eligible based on patient's age to complete this topic [facility] HospitalLplvpkr3423-66-21 13:32:08 Diagnosis PMR (polymyalgia rheumatica) (CMS/HCC) (HCC) - Primary 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 Primary hypertension Unspecified essential hypertension [facility] [id number] 13:32:08 [place] [id number] 13:32:08* [facility] [id number] 13:32:08Upcoming Encounters Health Maintenance Due Date Last Done Comments CT Colonography 1956 Colonoscopy 1956 Colorectal Cancer Screening 1956 Diabetes: Hemoglobin A1C 1956 FIT-DNA 1956 FIT 1956 FOBT 1956 Lipid Panel 1956 Medicare Annual Wellness (AWV) 1956 Sigmoidoscopy 1956 Annual Physical 1959 Pneumococcal Vaccine: 65+ Ye ars (1 of 2 - PCV) 1962 Diabetes: Foot Exam 1966 Diabetes: Retinopathy Screening 1966 DTaP/Tdap/Td Vaccines (1 - Tdap) 1975 Diabetes: Urine Protein Screening 1975 Zoster Vaccines (1 of 2) 2006 Influenza Vaccine (#1) 2023 01/06/2014 Respiratory Syncytial Virus (RSV) or >=60 (1 - 1-dose 75+ series) 2031 HIB Vaccines Aged Out No longer eligi ble based on patient's age to complete this topic HPV Vaccines Aged Out No longer eligi ble based on patient's age to complete this topic Hepatitis A Vaccines Aged Out No long er eligible based on patient's age to complete this topic Hepatitis B Vaccines Aged Out No long er eligible based on patient's age to complete this topic IPV Vaccines Aged Out No longer eligi ble based on patient's age to complete this topic Meningococcal Vaccine Aged Out No lucy ansley eligible based on patient's age to complete this topic Rotavirus Vaccines Aged Out No longer eligible based on patient's age to complete this topic [facility] [id number] 13:32:08 Diagnosis PMR (polymyalgia rheumatica) (CMS/HCC) (HCC) - Primary Polymyalgia rheumatica skilled nursing current use of sys temic steroids Primary hypertension Unspecified essential hypertension [facility] [id number] 13:32:08 [facility] [id number] 14:50:36* [facility] HospitalAtznzbb0201-11-84 14:50:36Upcoming Encounters Scheduled Orders Name Type Priority Associated Diagnoses Orde r Schedule DEXA bone density Imaging Routine 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 Expected: 01/07/2024, Expires: 01/06/2025 Health Maintenance Due Date Last Done Comments CT Colonography 1956 Colonoscopy 1956 Colorectal Cancer Screening 1956 FIT-DNA 1956 FIT 1956 FOBT 1956 Lipid Panel 1956 Medicare Annual Wellness (AWV) 1956 Sigmoidoscopy 1956 Pneumococcal Vaccine: 65+ Ye ars (1 of 2 - PCV) 1962 Diabetes: Foot Exam 1966 Diabetes: Retinopathy Screening 1966 DTaP/Tdap/Td Vaccines (1 - Tdap) 1975 Diabetes: Urine Protein Screening 1975 Zoster Vaccines (1 of 2) 2006 Respiratory Syncytial Virus (RSV) or >=60 (1 - 1-dose 60+ series) 2016 Influenza Vaccine (#1) 2023 01/06/2014 HIB Vaccines Aged Out No longer eligi ble based on patient's age to complete this topic HPV Vaccines Aged Out No longer eligi ble based on patient's age to complete this topic Hepatitis A Vaccines Aged Out No long er eligible based on patient's age to complete this topic Hepatitis B Vaccines Aged Out No long er eligible based on patient's age to complete this topic IPV Vaccines Aged Out No longer eligi ble based on patient's age to complete this topic Meningococcal Vaccine Aged Out No lucy ansley eligible based on patient's age to complete this topic Rotavirus Vaccines Aged Out No longer eligible based on patient's age to complete this topic [facility] [id number] 14:50:36 Diagnosis skilled nursing current use of sys temic steroids - Primary [facility] [id number] 14:50:36 [facility] [id number] 14:46:51 New DEXA Order. [facility] [id number] 17:58:57* [facility] [id number] 17:58:57* Minnie Montilla MD - 11/14/2023 1:00 PM CDT Images from the original note were not included. [facility] Established Patient Evaluation Subjective Patient ID: Dee Jose is a 68 y.o. male who presents for Joint Pain (B/l shoulders, hands, wrists, legs, forearms) Pt last seen 03/07. PMR: Pt cont to have occ achiness around shoulder girdle, about every 3 months in 2022 that improved with a short round of low dose Pred. Since 2023 he has had symptoms about 3 weeks of the month requiring steroids. He starts with Pred 10mg a day for 2-3 days then tapers to off. No vision change, headaches, jaw pain. OA of knees: Pt follows with ortho, pt gets periodic steroid injections with benefit. Pain relief lasts for months. Pt tries to stay active with exercise. Pt denies any other changes in his health. No trauma or injury in the last year. Pt denies hospitalizations or infections. . Current Outpatient Medications Medication Instructions acetaminophen (Tylenol) 325 MG tablet Orally atorvastatin (Lipitor) 20 MG tablet 1 tablet, Oral, Every 24 hours benzonatate (TESSALON) 200 mg, Oral clotrimazole-betamethasone (Lotrisone) cream APPLY EXTERNALLY TO THE AFFECTED AREA TWICE DAILY DIRECTED diphenhydrAMINE (Benadryl Allergy) 25 MG capsule 1 capsule, Every 8 hours empagliflozin (Jardiance) 25 MG Oral fluconazole (DIFLUCAN) 150 mg, Oral, Daily fluticasone (Flonase) 50 MCG/ACT nasal spray 1 spray, Nasal losartan (Cozaar) 25 MG tablet Oral metFORMIN (Glucophage) 1000 MG tablet 1 tablet, Every 24 hours metoprolol succinate XL (Toprol-XL) 100 MG 24 hr tablet montelukast (Singulair) 10 MG tablet 1 tablet, Oral, Every 24 hours Multiple Vitamins-Minerals (Multivitamin) liquid Orally omeprazole (PriLOSEC) [address] capsule 1 capsule, Oral, Every 24 hours predniSONE (DELTASONE) 5 mg, Oral, Daily PRN predniSONE (DELTASONE) 2.5 mg, Oral, Daily PRN testosterone (Androgel) 50 MG/5GM (1%) gel Every 24 hours Patient Active Problem List Diagnosis Primary hypertension Bilateral carpal tunnel syndrome Lumbar disc disease Rotator cuff tear PMR (polymyalgia rheumatica) ([facility]/HCC) ([facility]) Type 2 diabetes mellitus, without long-term current use of insulin ([facility]) Entrapment of left ulnar nerve History of meniscal tear Primary osteoarthritis of both knees Mixed hyperlipidemia Current chronic use of systemic steroids Review of Systems Constitutional: Negative for fever and unexpected weight change. HENT: Negative for dental problem and mouth sores. Eyes: Negative for pain, redness, itching and visual disturbance. Respiratory: Negative for cough, chest tightness and shortness of breath. Cardiovascular: Negative for chest pain. Gastrointestinal: Negative for abdominal pain and blood in stool. Skin: Negative for color change and rash. Objective Physical Exam Visit Vitals BP 145/89 Pulse 72 Wt 89.4 kg (197 lb) Smoking Status Never Non-articular exam: Normal Gait abnormalities: none Devices: None Deformities: None Diagnostics: 07/31/12 l/s xrays. Minimal anterolisthesis at L4-L5 which is slightly worsened on flexion and reduces on extension. Mild multilevel endplate degenerative changes worst at L4-L5 and L5-S1. C/s xrays. There is reversal of normal lordosis in lower cervical region. There is prominent facet arthropathy on the right at C3-C4 with moderate grade 1 anterolisthesis. There is a difference of approximately 2 mm in the degree of listhesis at C3 relative to C4 between flexion-extension. At least moderate bilateral osseous foraminal stenosis is noted this level as well oblique images. At C4-C5 there is mild grade 1 anterolisthesis which changes approximately 1.5 mm between flexion-extension. Mild left osseous foraminal stenosis is suggested at this level. At C5-C6 there is mild grade 1 anterolisthesis with a difference of approximately 1.5 mm between flexion-extension. At C6-C7 there is prominent spondylosis with large anterolateral osteophytes and uncovertebral hypertrophy. At least moderate bilateral osseous foraminal stenosis is present, and dorsal spondylosis contributes to at least mild osseous canal stenosis. C7-T1 is suboptimally visualized on lateral images. Assessment & Plan PMR (polymyalgia rheumatica) (CMS/HCC) ([facility]) Pt with recent symptoms concerning for PMR flare despite normal inflamm markers. He will try Pred 2.5mg a day for now to see if helpful, to avoid needing higher doses every few weeks. Disc again warning signs of temporal arteritis. Orders: DEXA bone density; Future predniSONE (Deltasone) 5 MG tablet; Take 1 tablet by mouth daily as needed (pain). predniSONE (Deltasone) 2.5 MG tablet; Take 1 tablet by mouth daily as needed (pain). 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 Check DEXA Lumbar disc disease Type 2 diabetes mellitus without complication, without long-term current use of insulin (CMS/[facility]) ([facility]) Monitor with steroid use Primary hypertension Monitor with steroid use Management options were discussed. Answered all questions. Side effects of medications were discussed. Reviewed all labs and diagnostics with patient. Pt to continue to follow up with PCP for routine health evaluations. Follow up:3 months Minnie Montilla MD T [facility] [id number] 17:58:57Upcoming Encounters Scheduled Orders Name Type Priority Associated Diagnoses Orde r Schedule DEXA bone density Imaging Routine PMR (polym yalgia rheumatica) (CMS/HCC) ([facility]) Expected: 11/14/2023 (Approximate), Expires: 05/16/2024 Health Maintenance Due Date Last Done Comments CT Colonography 1956 Colonoscopy 1956 Colorectal Cancer Screening 1956 Diabetes: Hemoglobin A1C 1956 FIT-DNA 1956 FIT 1956 FOBT 1956 Lipid Panel 1956 Medicare Annual Wellness (AWV) 1956 Sigmoidoscopy 1956 Pneumococcal Vaccine: 65+ Ye ars (1 of 2 - PCV) 1962 Diabetes: Foot Exam 1966 Diabetes: Retinopathy Screening 1966 DTaP/Tdap/Td Vaccines (1 - Tdap) 1975 Diabetes: Urine Protein Screening 1975 Zoster Vaccines (1 of 2) 2006 Respiratory Syncytial Virus (RSV) or >=60 (1 - 1-dose 60+ series) 2016 Influenza Vaccine (#1) 2023 01/06/2014 HIB Vaccines Aged Out No longer eligi ble based on patient's age to complete this topic HPV Vaccines Aged Out No longer eligi ble based on patient's age to complete this topic Hepatitis A Vaccines Aged Out No long er eligible based on patient's age to complete this topic Hepatitis B Vaccines Aged Out No long er eligible based on patient's age to complete this topic IPV Vaccines Aged Out No longer eligi ble based on patient's age to complete this topic Meningococcal Vaccine Aged Out No lucy ansley eligible based on patient's age to complete this topic Rotavirus Vaccines Aged Out No longer eligible based on patient's age to complete this topic [facility] [id number] 17:58:57 Diagnosis Current chronic use of syste rangel steroids - Primary PMR (polymyalgia rheumatica) (CMS/HCC) ([facility]) Polymyalgia rheumatica Lumbar disc disease Other and unspecified disc disorder of lumbar region Type 2 diabetes mellitus wit hout complication, without long-term current use of insulin ([facility]) ([facility]) Primary hypertension Unspecified essential hypertension [facility] [id number] 17:58:57 [facility] [id number] 17:58:56* [facility] [id number] 17:58:56* Minnie Montilla MD - 11/14/2023 1:00 PM CDT Images from the original note were not included. [facility] Established Patient Evaluation Subjective Patient ID: Dee Jose is a 68 y.o. male who presents for Joint Pain (B/l shoulders, hands, wrists, legs, forearms) Pt last seen 03/07. PMR: Pt cont to have occ achiness around shoulder girdle, about every 3 months in 2022 that improved with a short round of low dose Pred. Since 2023 he has had symptoms about 3 weeks of the month requiring steroids. He starts with Pred 10mg a day for 2-3 days then tapers to off. No vision change, headaches, jaw pain. OA of knees: Pt follows with ortho, pt gets periodic steroid injections with benefit. Pain relief lasts for months. Pt tries to stay active with exercise. Pt denies any other changes in his health. No trauma or injury in the last year. Pt denies hospitalizations or infections. . Current Outpatient Medications Medication Instructions acetaminophen (Tylenol) 325 MG tablet Orally atorvastatin (Lipitor) 20 MG tablet 1 tablet, Oral, Every 24 hours benzonatate (TESSALON) 200 mg, Oral clotrimazole-betamethasone (Lotrisone) cream APPLY EXTERNALLY TO THE AFFECTED AREA TWICE DAILY DIRECTED diphenhydrAMINE (Benadryl Allergy) 25 MG capsule 1 capsule, Every 8 hours empagliflozin (Jardiance) 25 MG Oral fluconazole (DIFLUCAN) 150 mg, Oral, Daily fluticasone (Flonase) 50 MCG/ACT nasal spray 1 spray, Nasal losartan (Cozaar) 25 MG tablet Oral metFORMIN (Glucophage) 1000 MG tablet 1 tablet, Every 24 hours metoprolol succinate XL (Toprol-XL) 100 MG 24 hr tablet montelukast (Singulair) 10 MG tablet 1 tablet, Oral, Every 24 hours Multiple Vitamins-Minerals (Multivitamin) liquid Orally omeprazole (PriLOSEC) [address] capsule 1 capsule, Oral, Every 24 hours predniSONE (DELTASONE) 5 mg, Oral, Daily PRN predniSONE (DELTASONE) 2.5 mg, Oral, Daily PRN testosterone (Androgel) 50 MG/5GM (1%) gel Every 24 hours Patient Active Problem List Diagnosis Primary hypertension Bilateral carpal tunnel syndrome Lumbar disc disease Rotator cuff tear PMR (polymyalgia rheumatica) ([facility]) ([facility]) Type 2 diabetes mellitus, without long-term current use of insulin ([facility]) Entrapment of left ulnar nerve History of meniscal tear Primary osteoarthritis of both knees Mixed hyperlipidemia Current chronic use of systemic steroids Review of Systems Constitutional: Negative for fever and unexpected weight change. HENT: Negative for dental problem and mouth sores. Eyes: Negative for pain, redness, itching and visual disturbance. Respiratory: Negative for cough, chest tightness and shortness of breath. Cardiovascular: Negative for chest pain. Gastrointestinal: Negative for abdominal pain and blood in stool. Skin: Negative for color change and rash. Objective Physical Exam Visit Vitals BP 145/89 Pulse 72 Wt 89.4 kg (197 lb) Smoking Status Never Non-articular exam: Normal Gait abnormalities: none Devices: None Deformities: None Diagnostics: 07/31/12 l/s xrays. Minimal anterolisthesis at L4-L5 which is slightly worsened on flexion and reduces on extension. Mild multilevel endplate degenerative changes worst at L4-L5 and L5-S1. C/s xrays. There is reversal of normal lordosis in lower cervical region. There is prominent facet arthropathy on the right at C3-C4 with moderate grade 1 anterolisthesis. There is a difference of approximately 2 mm in the degree of listhesis at C3 relative to C4 between flexion-extension. At least moderate bilateral osseous foraminal stenosis is noted this level as well oblique images. At C4-C5 there is mild grade 1 anterolisthesis which changes approximately 1.5 mm between flexion-extension. Mild left osseous foraminal stenosis is suggested at this level. At C5-C6 there is mild grade 1 anterolisthesis with a difference of approximately 1.5 mm between flexion-extension. At C6-C7 there is prominent spondylosis with large anterolateral osteophytes and uncovertebral hypertrophy. At least moderate bilateral osseous foraminal stenosis is present, and dorsal spondylosis contributes to at least mild osseous canal stenosis. C7-T1 is suboptimally visualized on lateral images. Assessment & Plan PMR (polymyalgia rheumatica) ([facility]) ([facility]) Pt with recent symptoms concerning for PMR flare despite normal inflamm markers. He will try Pred 2.5mg a day for now to see if helpful, to avoid needing higher doses every few weeks. Disc again warning signs of temporal arteritis. Orders: DEXA bone density; Future predniSONE (Deltasone) 5 MG tablet; Take 1 tablet by mouth daily as needed (pain). predniSONE (Deltasone) 2.5 MG tablet; Take 1 tablet by mouth daily as needed (pain). Current chronic use of systemic steroids Pt at high risk of osteoporosis due to [place] [facility] steroid use. Check DEXA Lumbar disc disease Type 2 diabetes mellitus without complication, without long-term current use of insulin (CMS/[facility]) (HCC) Monitor with steroid use Primary hypertension Monitor with steroid use Management options were discussed. Answered all questions. Side effects of medications were discussed. Reviewed all labs and diagnostics with patient. Pt to continue to follow up with PCP for routine health evaluations. Follow up:3 months Minnie Montilla MD [facility] [id number] 17:58:56Upcoming Encounters Scheduled Orders Name Type Priority Associated Diagnoses Orde r Schedule DEXA bone density Imaging Routine PMR (polym yalgia rheumatica) (CMS/HCC) (HCC) Expected: 11/14/2023 (Approximate), Expires: 05/16/2024 Health Maintenance Due Date Last Done Comments CT Colonography 1956 Colonoscopy 1956 Colorectal Cancer Screening 1956 Diabetes: Hemoglobin A1C 1956 FIT-DNA 1956 FIT 1956 FOBT 1956 Lipid Panel 1956 Medicare Annual Wellness (AWV) 1956 Sigmoidoscopy 1956 Pneumococcal Vaccine: 65+ Ye ars (1 of 2 - PCV) 1962 Diabetes: Foot Exam 1966 Diabetes: Retinopathy Screening 1966 DTaP/Tdap/Td Vaccines (1 - Tdap) 1975 Diabetes: Urine Protein Screening 1975 Zoster Vaccines (1 of 2) 2006 Respiratory Syncytial Virus (RSV) or >=60 (1 - 1-dose 60+ series) 2016 Influenza Vaccine (#1) 2023 01/06/2014 HIB Vaccines Aged Out No longer eligi ble based on patient's age to complete this topic HPV Vaccines Aged Out No longer eligi ble based on patient's age to complete this topic Hepatitis A Vaccines Aged Out No long er eligible based on patient's age to complete this topic Hepatitis B Vaccines Aged Out No long er eligible based on patient's age to complete this topic IPV Vaccines Aged Out No longer eligi ble based on patient's age to complete this topic Meningococcal Vaccine Aged Out No lucy ansley eligible based on patient's age to complete this topic Rotavirus Vaccines Aged Out No longer eligible based on patient's age to complete this topic [facility] [id number] 17:58:56 Diagnosis Current chronic use of syste rangel steroids - Primary PMR (polymyalgia rheumatica) ([facility]) ([facility]) Polymyalgia rheumatica Lumbar disc disease Other and unspecified disc disorder of lumbar region Type 2 diabetes mellitus wit hout complication, without long-term current use of insulin ([facility]) ([facility]) Primary hypertension Unspecified essential hypertension [facility] [id number] 17:58:56 [facility]
[2024-07-01] MEDS ORDERED: METHYLPREDNISOLONE 125 MG INJ ONE (13:53)
[2024-07-01] MEDS ORDERED: NA CHLORIDE 0.9% 1,000 ML ONE (13:54)
[2024-07-01] MEDS ORDERED: MORPHINE 4 MG/ML SYR ONE (13:54)
[2024-07-01 14:10] LABS: Absolute Basophils 0.1 K/uL (0-0.5); Absolute Eosinophils 0.2 K/uL (0-0.5); Absolute Lymphocytes (CBC) 1.3 K/uL (0.7-4.9); Absolute Monocytes 0.9 K/uL (0.1-1.3); Absolute Neutrophil 5.8 K/uL (1.8-8.0); Eosinophils % 2.6 % (0-4.4); Hematocrit 50.8 % (39.6-49.0); Hemoglobin 17.8 g/dL (13.6-17.9); Lymphocytes % 15.5 % (15.3-44.8); MCH 31.5 pg (27.0-35.0); MPV 8.2 fL (7.6-11.3); Monocytes % 10.8 % (3.3-12.3); Neutrophils % 70.1 % (41.7-73.7); Platelets 184 thou/uL (152-406); RBC Red Blood Cell Count 5.64 M/uL (4.33-5.43); Red Cell Distribution Width 13.3 % (12.1-15.2)
[2024-07-01 14:15] LABS: Anion Gap 9.6 mEq/L (5.0-15.0); BUN Blood Urea Nitrogen 19 mg/dL (7-18); Bicarbonate 24 mEq/L (21-32); Glomerular Filtration Rate 89 ml/min (=/>90); Glucose Level 118 mg/dL (74-106); Potassium 3.6 mEq/L (3.5-5.1); Sodium Level 137 mEq/L (136-145)
[2024-07-01 14:17] LABS: C-Reactive Protein < 2.90 mg/L (<3.00)
--- NOTE | 2024-07-01 14:41 | RAD REPORT ---
EXAMINATION: Head Brain Wo Cont CLINICAL INDICATION: Male, 69 years old.HEADACHE TECHNIQUE: Axial CT images from the skull base to the vertex without intravenous contrast. Coronal an d sagittal reformatted images were created from the data set. One or more of the following dose reduction techniques were used: Automated exposure control, adjustment of the mA and/or kV according to patient size, and/or iterative reconstruction. Unless otherwise specified, incidental findings do not require dedicated imaging follow-up. [id number]. COMPARISON: No prior exam. FINDINGS: INTRACRANIAL: No acute intracranial hemorrhage. No hydrocephalus. No mass effect or midline shift. Mi ld chronic small vessel ischemic changes. VASCULATURE: No visualized abnormalities in the arteries or dural venous sinuses. SCALP/SKULL: No calvarial fracture identified. No acute soft tissue abnormality. SINUSES: The visualized paranasal sinuses are mostly clear. No significant mastoid fluid. IMPRESSION: No acute intracranial abnormality.
--- NOTE | 2024-07-01 14:46 | RAD REPORT ---
EXAMINATION: Head angio CLINICAL INDICATION: Male, 69 years old. right sided GCA? TECHNIQUE: Axial CT images were obtained through the head after intravenous contrast utilizing angiog raphic protocol with 3D post-processing (maximum intensity projection images, volume rendered images and/or shaded surface rendered images). One or more of the following dose reduction technique s were used: Automated exposure control, adjustment of the mA and/or kV according to patient size, and/or iterative reconstruction. Unless otherwise specified, incidental findings do not require dedic ated imaging follow-up. COMPARISON: No prior exam. FINDINGS: RIGHT: ICA: Atherosclerotic calcifications but no flow limiting stenosis. MELISSA: Patent MCA: Patent REWORK MACHINE OPERATOR: Patent LEFT: ICA: Atherosclerotic calcifications but no flow limiting stenosis. MELISSA: Patent MCA: Patent REWORK MACHINE OPERATOR: Patent -type left REWORK MACHINE OPERATOR. Vertebrobasilar: Right dominant vertebral artery. The left vertebral artery terminates in a branch of the PICA. The basilar artery is patent. The right and left temporal arteries are normal in caliber. 3D images confirm these findings. IMPRESSION: No occlusion, aneurysm, or hemodynamically significant stenosis identified.
--- NOTE | 2024-07-01 14:59 | EDPHYS ---
Physician Documentation [facility] Name: Calvin Jose Age: 69 yrs Sex: Male : 1955 Arrival Date: 07/01/2024 Time: 13:11 Bed 2 Private MD: ED Physician Tiana Luo HPI: 07/01 13:59 This 69 yrs old Male presents to ER via Ambulatory with complaints of Headache, Jaw sb4 Pain. 13:59 The patient complains of pain to the right yarsanism. The patient describes the headache sb4 as throbbing. Onset: The symptoms/episode began/occurred last night. Patient states that he developed a right sided ocular migraine last night and this morning he noticed that he had swelling on his right yarsanism. He has a history of polymyalgia rheumatica and is concerned for GCA. States that he is currently on 2.5 mg of prednisone daily and he was on a Medrol Dosepak a few weeks ago. States that he had a dental extraction on his right lower jaw 2 weeks ago but had that checked by dentist today and everything looked good. Historical: - Allergies: 13:29 No Known Allergies; cm10 - PMHx: 13:29 Polymyalgia rheumatica; Hypertensive disorder; Diabetes mellitus; cm10 - PSHx: 13:29 Hernia; Laminectomy; Discectomy; cm10 - Immunization history:: Adult Immunizations up to date. - Infectious Disease History:: Denies. - Social history:: Smoking status: Patient denies any tobacco usage or history of. ROS: 13:59 Constitutional: Negative for fever, chills, and weight loss, sb4 13:59 Neuro: Positive for headache, 13:59 All other systems are negative, Exam: 13:59 Eyes: Extra-ocular motions intact. Periorbital areas with no swelling, redness, or sb4 edema. ENT: Mucous membranes moist. Cardiovascular: Regular rate and rhythm with a normal S1 and S2. Respiratory: No increased work of breathing, no retractions or nasal flaring. Abdomen/GI: Soft, non-tender, no distension. Skin: Warm, dry with normal turgor. Normal color with no rashes, no lesions, and no evidence of cellulitis. 13:59 Constitutional: The patient appears alert, awake, uncomfortable, 13:59 Head/face: Noted is swelling, that is moderate, of the right yarsanism, tenderness, that is moderate, of the right yarsanism, Vital Signs: 13:30 BP 148 / 90; Pulse 83; Resp 15; Temp 98.1; Pulse Ox 97% on R/A; Weight 88.45 kg; Height cm10 5 ft. 4 in. ; Pain 5/10; 13:30 Body Mass Index 33.47 (88.45 kg, 162.56 cm) cm10 13:30 Pain Scale: Adult cm10 [place] Coma Score: 14:57 Eye Response: spontaneous(4). Motor Response: obeys commands(6). Verbal Response: sb4 oriented(5). Total: 15. MDM: 13:16 Medical Screening Exam initiated sb4 14:57 Counseling: I had a detailed discussion with the patient and/or guardian regarding the sb4 historical points, exam findings, and any diagnostic results supporting the discharge/admit diagnosis, the presence of at least one elevated blood pressure reading (>120/80) during this emergency department visit, lab results, radiology results, the need for outpatient follow up, for definitive care, to return to the emergency department if symptoms worsen or persist or if there are any questions or concerns that arise at home. ED course: pain has improved, NO visual changes. CRP and imaging is negative. will safely discharge home with PO prednisone and PCP follow up. 15:00 Data reviewed: vital signs, nurses notes, lab test result(s), radiologic studies, I sb4 have discussed the patient's presentation/case with the attending Emergency Department Physician; and as a result, I will discharge patient. 07/01 13:40 Order name: CBC with Diff; Complete Time: 14:14 sb4 07/01 13:40 Order name: BMP; Complete Time: 14:18 sb4 07/01 13:40 Order name: CRP; Complete Time: 14:18 sb4 07/01 13:55 Order name: Head Angio CT; Complete Time: 14:50 sb4 07/01 14:10 Order name: Head Brain Wo Cont CT; Complete Time: 14:42 sb4 07/01 13:40 Order name: IV Start; Complete Time: 13:56 sb4 Administered Medications: 13:43 CANCELLED (Other Intervention Used): Decadron - [id number] mg IVP once sb4 14:00 Drug: NS 0.9% IV 1000 ml IV at 1000 ml once; to be given as a bolus over 60 minutes db Route: IV; Rate: 1000 ml; Site: left antecubital; 15:28 Follow up: Response: No adverse reaction; IV Status: Completed infusion; IV Intake: kc6 1000ml 14:00 Drug: morphine IVP or IV 4 mg IVP once over 4 mins Route: IVP; Infused Over: 4 mins; db Site: left antecubital; 15:28 Follow up: Response: No adverse reaction; Pain is decreased; RASS: Alert and Calm (0) kc6 14:00 Drug: MethylPrednisoLONE IVP 125 mg IVP once Route: IVP; Site: left antecubital; db 15:28 Follow up: Response: No adverse reaction kc6 Disposition Summary: 07/01/24 14:58 Discharge Ordered Notes: Location: Home sb4 Problem: new sb4 Symptoms: have improved sb4 Condition: Stable sb4 Diagnosis - Temporal swelling, right sb4 Followup: sb4 - With: Private Physician - When: 2 - 3 days - Reason: Recheck today's complaints, Re-evaluation by your physician Discharge Instructions: - Discharge Summary Sheet sb4 Forms: - Patient Portal Instructions sb4 - Leadership Thank You Letter sb4 Prescriptions: - Prednisone 20 mg Oral Tablet - take 3 tablets ORAL route once daily for 5 days; 15 tablet; Refills: 0, Product sb4 Selection Permitted Signatures: Dispatcher [employer] Phoebe Martin RN RN db Dionne Vela PA-C PA-C sb4 Iza Engel RN RN cm10 Radha Jung RN kc6 Corrections: (The following items were deleted from the chart) 13:43 13:40 Decadron - Dexamethasone IVP 10 mg IVP once ordered. sb4 sb4
--- NOTE | 2024-07-01 14:59 | ER ---
Nurse's Notes [facility] Name: Calvin Jose Age: 69 yrs Sex: Male : 1955 Arrival Date: 07/01/2024 Time: 13:11 Bed 2 Private MD: Diagnosis: Temporal swelling, right Presentation: 07/01 13:30 Chief complaint: Patient states: Right sided headache onset a couple days ago. Pt cm10 states that he is also having right sided jaw pain since having tooth extracted a few weeks ago. Pt noted to have swelling to right temporal region. Coronavirus screen: Client denies travel out of the [place] in the last 14 days. Ebola Screen: Patient denies travel to an Ebola-affected area in the 21 days before illness onset. Initial Sepsis Screen: Does the patient meet any 2 criteria? No. Patient's initial sepsis screen is negative. Does the patient have a suspected source of infection? No. Patient's initial sepsis screen is negative. Risk Assessment: Do you want to hurt yourself or someone else?. Onset of symptoms was July 01, 2024. 13:30 Method Of Arrival: Ambulatory cm10 13:30 Acuity: YENI 3 cm10 Triage Assessment: 13:32 General: Appears uncomfortable, Behavior is calm, cooperative. Neuro: No deficits cm10 noted. Level of Consciousness is awake, alert, obeys commands, Oriented to person, place, time, situation, Appropriate for age. Respiratory: No deficits noted. Airway is patent Respiratory effort is even, unlabored, Respiratory pattern is regular, symmetrical. Historical: - Allergies: 13:29 No Known Allergies; cm10 - PMHx: 13:29 Polymyalgia rheumatica; Hypertensive disorder; Diabetes mellitus; cm10 - PSHx: 13:29 Hernia; Laminectomy; Discectomy; cm10 - Immunization history:: Adult Immunizations up to date. - Infectious Disease History:: Denies. - Social history:: Smoking status: Patient denies any tobacco usage or history of. Screenin:28 [facility] ED Fall Risk Assessment (Adult) History of falling in the last 3 months, kc6 including since admission No falls in past 3 months (0 pts) Confusion or Disorientation No (0 pts) Intoxicated or Sedated No (0 pts) Impaired Gait No (0 pts) Mobility Assist Device Used No (0 pt) Altered Elimination No (0 pt) Score/Fall Risk Level 0 - 2 = Low Risk Oriented to surroundings, Maintained a safe environment, Educated pt \T\ family on fall prevention, incl call for assistance when getting out of bed. Abuse screen: Denies threats or abuse. Denies injuries from another. Nutritional screening: No deficits noted. Tuberculosis screening: No symptoms or risk factors identified. Assessment: 14:07 Reassessment: Patient appears in no apparent distress at this time. Patient and/or db family updated on plan of care and expected duration. Pain level reassessed. Patient is alert, oriented x 3, equal unlabored respirations, skin warm/dry/pink. General: Appears in no apparent distress. comfortable, Behavior is calm, cooperative. Pain: Complains of pain in right faith. Neuro: Level of Consciousness is awake, alert, obeys commands, Oriented to person, place, time, situation. Vital Signs: 13:30 BP 148 / 90; Pulse 83; Resp 15; Temp 98.1; Pulse Ox 97% on R/A; Weight 88.45 kg; Height cm10 5 ft. 4 in. ; Pain 5/10; 13:30 Body Mass Index 33.47 (88.45 kg, 162.56 cm) cm10 13:30 Pain Scale: Adult cm10 [place] Coma Score: 14:57 Eye Response: spontaneous(4). Motor Response: obeys commands(6). Verbal Response: sb4 oriented(5). Total: 15. ED Course: 13:15 Patient arrived in ED. al6 13:15 Dionne Vela PA-C is PHCP. sb4 13:15 Tiana Luo MD is Attending Physician. sb4 13:29 Iza Engel, MICHAEL is Primary Nurse. cm10 13:32 Triage completed. cm10 13:32 Arm band placed on right wrist. Patient placed in an exam room, on a stretcher. cm10 13:54 Phoebe Ulloa, RN is Primary Nurse. db 13:55 Inserted saline lock: 20 gauge in left antecubital area, using aseptic technique. Blood rk3 collected. Flushed with 10 mL NS. 13:56 CRP Sent. rk3 13:56 BMP Sent. rk3 13:56 CBC with Diff Sent. rk3 14:[address] In Process Unspecified. EDMS 14:32 Head Brain Wo Cont CT In Process Unspecified. EDMS 15:28 Patient has correct armband on for positive identification. Bed in low position. Call kc6 light in reach. Side rails up X 1. Adult w/ patient. Pulse ox on. NIBP on. Door closed. Noise minimized. Lights dimmed. Pillow given. Verbal reassurance given. 15:28 No provider procedures requiring assistance completed. IV discontinued, intact, kc6 bleeding controlled, No redness/swelling at site. Pressure dressing applied. Patient maintains SpO2 saturation greater than 95% on room air. Administered Medications: 13:43 CANCELLED (Other Intervention Used): Decadron - [id number] mg IVP once sb4 14:00 Drug: NS 0.9% IV 1000 ml IV at 1000 ml once; to be given as a bolus over 60 minutes db Route: IV; Rate: 1000 ml; Site: left antecubital; 15:28 Follow up: Response: No adverse reaction; IV Status: Completed infusion; IV Intake: kc6 1000ml 14:00 Drug: morphine IVP or IV 4 mg IVP once over 4 mins Route: IVP; Infused Over: 4 mins; db Site: left antecubital; 15:28 Follow up: Response: No adverse reaction; Pain is decreased; RASS: Alert and Calm (0) kc6 14:00 Drug: MethylPrednisoLONE IVP 125 mg IVP once Route: IVP; Site: left antecubital; db 15:28 Follow up: Response: No adverse reaction kc6 Medication: 15:29 VIS not applicable for this client. kc6 Intake: 15:28 IV: 1000ml; Total: 1000ml. kc6 Outcome: 14:58 Discharge ordered by . sb4 15:29 Discharged to home ambulatory, with significant other, kc6 15:29 Condition: good 15:29 Discharge instructions given to patient, significant other, Instructed on discharge instructions, follow up and referral plans. medication usage, Demonstrated understanding of instructions, follow-up care, medications, Prescriptions given X 1, 15:29 Patient left the ED. kc6 Signatures: Dispatcher [employer] EDMS Radha Jung RN RN kc6 Phoebe Ulloa RN RN db Dionne Vela PA-C PA-C sb4 Iza Engel RN RN cm10 Zulma Thomas6 Eugenie Bernard rk3
== END 2024-07-01 15:29 | disposition home or self-care (01) ==
LOC: ER 13:11
DX: R22.0 Localized swelling, mass and lump, head (principal); I10 Essential (primary) hypertension; E11.9 Type 2 diabetes mellitus without complications; M35.3 Polymyalgia rheumatica
CPT/HCPCS: 36415; 70450; 70496; 80048; 85025; 86140; 96361; 96374; 96375; 99284; J2919; J7030; Q9967

== ENCOUNTER 2024-07-31 06:14 | Day surgery (SDC) | payer OTHER, MEDICARE ==
[2024-07-31] MEDS ORDERED: NA CHLORIDE 0.9% 1,000 ML ONE (06:37)
[2024-07-31 07:01] LABS: Absolute Basophils 0.1 K/uL (0-0.5); Absolute Eosinophils 0.1 K/uL (0-0.5); Absolute Lymphocytes (CBC) 2.5 K/uL (0.7-4.9); Absolute Monocytes 1.5 K/uL (0.1-1.3); Absolute Neutrophil 7.1 K/uL (1.8-8.0); Basophils % 0.5 % (0-1.3); Eosinophils % 1.3 % (0-4.4); Hematocrit 49.6 % (39.6-49.0); Lymphocytes % 22.2 % (15.3-44.8); MCHC 34.3 g/dL (32.0-36.0); MCV 90.4 fL (80-100); MPV 7.9 fL (7.6-11.3); Monocytes % 13.1 % (3.3-12.3); Neutrophils % 62.9 % (41.7-73.7); Nucleated Red Blood Cells % 0.1 % (0-0); Platelets 227 thou/uL (152-406); RBC Red Blood Cell Count 5.48 M/uL (4.33-5.43); Red Cell Distribution Width 13.3 % (12.1-15.2)
[2024-07-31 08:05] LABS: Anion Gap 12.8 mEq/L (5.0-15.0); Potassium 3.8 mEq/L (3.5-5.1)
[2024-07-31 08:06] LABS: Blood Morphology Comment NOT SEEN (NOT SEEN); Platelet Estimate ADEQ; White Blood Cell Scan OK (OK)
[2024-07-31] MEDS ORDERED: FENTANYL CITR 100 MCG/2 ML ONE (09:54)
[2024-07-31] MEDS ORDERED: MIDAZOLAM HCL 2 MG/2 ML INJ ONE (09:54)
[2024-07-31] MEDS ORDERED: propofoL 200 MG/20 ML VIAL IV ONE (09:54)
[2024-07-31] MEDS: CEFAZOLIN SODIUM 1 GM/VIAL ONE (10:20)
[2024-07-31] MEDS: LIDOCAINE 1% MPF 5 ML VIAL ONE (10:22)
--- NOTE | 2024-07-31 11:40 | P.OP ---
Chemical Technician: Odalis Block Preoperative diagnosis: Facial pain, evaluate for giant cell arteritis Postoperative diagnosis: Same Primary procedure: Right temporal artery biopsy Anesthesia: General Estimated blood loss: Less than 5 mm Specimen: Right temporal artery, 27 mm Findings: Atrophic appearing temporal artery Operative Technique: Patient was brought to the operating room placed under general anesthesia via laryngeal mask airway. The head of bed was turned 90 degrees for better exposure of the right hindu. The right hindu had been previously marked as location of procedure. The skin was cleaned with alcohol and the Doppler was used to aid in identification of the course of the temporal artery. Brisk signal was noted in the upper preauricular region with weaker signal within the hindu region itself. Various points of Doppler signal were marked with a surgical pen and the area was injected superficially with approximately 3 mL of 1% lidocaine with epinephrine. The scalp face and neck were prepped with Betadine and draped in a sterile fashion. An initial 1-1/2 cm incision was made through the skin overlying the most brisk Doppler signal using a 15 blade scalpel. The subcutaneous tissues were then divided using needlepoint Bovie electrocautery. Blunt dissection with a Mosley dissector was undertaken and the temporal artery was identified. Careful dissection was carried out superiorly tracing the course of the temporal artery. It appeared to branch with 1 area coursing more posteriorly and the remaining coursing superiorly towards the hindu. The superior course was followed with blunt dissection. The incision through the skin was elongated approximately 1 cm and dissection continued with careful division of the superficial layer of the temporalis fascia allowing continued dissection along the course of the temporal artery. Of note the temporal artery in this area was quite narrow. An additional excision of the incision by another centimeter allowed for better exposure and the visualized portion of the temporal artery measured approximately 3 to 3-1/2 cm. A 2-0 silk tie was placed at the superiormost aspect of the vessel and an additional tie was placed on the inferior most aspect of the vessel. A third tie was placed along the posterior branch. The bipolar and iris scissors were then used to divide the temporal artery and carefully elevated from the underlying soft tissue and fascia. After removal the length of the specimen was measured and confirmed at 27 mm. The surgical bed was inspected and there was no evidence of any bleeding. The incision was closed in a layered fashion using 4-0 Vicryl buried sutures with closure of the skin using 5-0 fast absorbing gut in a running fashion. The skin was cleaned and antibiotic ointment was applied to the incision site. The patient was then returned to care of anesthesia for awakening extubation in the operating room which proceeded without complication. Complications: None Implants: None Fluids & blood products: See anesthesia record Transferred to: Recovery Room Condition: Good
[2024-07-31 11:56] VITALS: TEMP 97
[2024-07-31 13:27] VITALS: BP 146/81; O2SAT 97
--- NOTE | 2024-08-05 12:57 | EKG ---
Test Date: 2024-07-31 Test Time: 07:07:21 Improvement Manager: JB MEASUREMENT RESULTS: Intervals: Rate: 61 IA: 184 QRSD: 100 QT: 408 QTc: 410 [place]: P: 51 IA: 184 QRS: -18 T: 10 INTERPRETIVE STATEMENTS: Normal sinus rhythm Normal ECG Compared to ECG 11/28/1994 05:06:00 No significant changes Electronically Signed On 08-05-24 12:43:45 CDT by Jaime Garcia
== END 2024-07-31 12:50 | disposition home or self-care (01) ==
LOC: OR 06:14
PROVIDERS: ATTEND Otolaryngology
PROC: 03BS0ZX Excision of Right Temporal Artery, Open Approach, Diagnostic (ICD-10-PCS; principal; 2024-07-31 08:45)
DX: R51.9 Headache, unspecified (principal); R22.0 Localized swelling, mass and lump, head
CPT/HCPCS: 37609; 93005; 85025; 80048; 36415; 82947 ×2; 88305; J2704; J2003; J2250; J3010; J7030; J0690